=== PATIENT | male | born 1980 | race Caucasian/White ===

== ENCOUNTER 2019-08-27 17:04 | Outpatient (CLI) | payer OTHER | END 2019-08-27 17:23 | disposition home or self-care (01) | LOC: RAD 17:04 | PROVIDERS: ATTEND Physical Medicine & Rehabilitation | DX: M54.6 Pain in thoracic spine (principal); M54.5 Low back pain ==

== ENCOUNTER → 2024-02-07 12:21 | Outpatient (CLI) | payer OTHER ==
[2024-02-07 12:51] LABS: ABG PH 7.432 (7.35-7.45)
[2024-02-07 12:52] LABS: ABG PO2 76.8 mmHg (80-100); ABG pCO2 39.7 mmHg (35-45); BASE EXCESS 1.6 mmol/l; BICARBONATE 25.8 mmol/l (23-25); SaO2 95.7 %; Tco2 27.1 mmol/l; allen test SATISFACTORY; puncture site RADIAL RIGHT
[2024-02-07 12:53] LABS: o2 21 %
== END | disposition home or self-care (01) ==
LOC: LAB 12:21
DX: G47.33 Obstructive sleep apnea (adult) (pediatric) (principal)